=== PATIENT | male | born 1990 | race Caucasian/White ===

== ENCOUNTER 2017-05-21 19:01 | Emergency (ER) | payer MEDICAID ==
--- NOTE | 2017-05-21 19:57 | UC ---
Respiratory Complaint HPI - HPI Summary HPI Summary: 4 days of chest tightness and nasal and eye drainage no fevers no illness exposure - History of Current Complaint Chief Complaint: UCRespiratory Stated Complaint: FLU-LIKE SYMPTOMS Time Seen by Provider: 05/21/17 19:50 Hx Obtained From: Patient Onset/Duration: Gradual Onset, Lasting Days - 4, Still Present Timing: Constant Severity Initially: Mild Severity Currently: Mild Character: Cough: Nonproductive Aggravating Factors: Deep Breaths Alleviating Factors: Nothing Associated Signs And Symptoms: Positive: Pleuritic Chest Pain, URI, Nasal Congestion - Allergies/Home Medications Allergies/Adverse Reactions: Allergies Allergy/AdvReac Type Severity Reaction Status Date / Time No Known Allergies Allergy Verified 05/25/16 17:00 PMH/Surg Hx/FS Hx/Imm Hx Previously Healthy: Yes Respiratory History: Asthma - as achild - Surgical History Surgical History: None - Family History Known Family History: Negative: Hypertension - father, Diabetes - Social History Occupation: Unemployed Lives: With Family Alcohol Use: Weekly Substance Use Type: Marijuana Smoking Status (MU): Never Smoked Tobacco - Immunization History Most Recent Tetanus Shot: 05/23/16 Review of Systems Constitutional: Fatigue Skin: Negative Eyes: Negative ENT: Nasal Discharge Respiratory: Cough Cardiovascular: Negative Gastrointestinal: Negative Genitourinary: Negative Motor: Negative Neurovascular: Negative Musculoskeletal: Negative Neurological: Negative Psychological: Negative All Other Systems Reviewed And Are Negative: Yes Physical Exam Triage Information Reviewed: Yes Appearance: Well-Appearing, No Pain Distress, Well-Nourished Vital Signs: Initial Vital Signs Temp 99.1 F 05/21/17 19:05 Pulse 59 05/21/17 19:05 Resp 18 05/21/17 19:05 Pulse Ox 97 05/21/17 19:05 Vital Signs Reviewed: Yes Eye Exam: Normal Eyes: Positive: Conjunctiva Clear ENT Exam: Normal ENT: Positive: Normal ENT inspection, Hearing grossly normal, Pharynx normal, Nasal congestion, Nasal drainage, TMs normal - left (no right ear canal congenital). Negative: Tonsillar swelling, Tonsillar exudate, Trismus, Muffled/ hoarse voice Dental Exam: Normal Neck exam: Normal Neck: Positive: Supple, Nontender, No Lymphadenopathy Respiratory Exam: Normal Respiratory: Positive: Chest non-tender, Lungs clear, No respiratory distress, No accessory muscle use Cardiovascular Exam: Normal Cardiovascular: Positive: RRR, No Murmur, Pulses Normal, Brisk Capillary Refill Musculoskeletal Exam: Normal Musculoskeletal: Positive: Strength Intact, ROM Intact, No Edema Neurological Exam: Normal Neurological: Positive: Alert, Muscle Tone Normal Psychological Exam: Normal Skin Exam: Normal UC Diagnostic Evaluation - Laboratory O2 Sat by Pulse Oximetry: 97 Respiratory Course/Dx - Course Course Of Treatment: Zyrtec, albuterol, increase fluids, follow with pcp prn - Differential Dx/Diagnosis Differential Diagnosis/HQI/PQRI: Asthma, Lower Resp Infection, Sinusitis Provider Diagnoses: URI, Bronchospasm Discharge - Discharge Plan Condition: Stable Disposition: HOME Prescriptions: Albuterol HFA INHALER* [Ventolin HFA Inhaler*] 2 puff INH Q4H PRN #1 mdi PRN Reason: cough and chest tightness Cetirizine HCl [Zyrtec Allergy 10 MG TAB] 10 mg PO DAILY #30 tab Patient Education Materials: Allergic Rhinitis (ED), Bronchospasm (ED) Referrals: [facility] [place] [facility] [Outside] - If Needed
== END 2017-05-21 20:10 | disposition home or self-care (01) ==
LOC: UCEAST 19:01
DX: J06.9 Acute upper respiratory infection, unspecified (principal); J98.01 Acute bronchospasm
CPT/HCPCS: 99212; G0463

== ENCOUNTER 2018-03-01 09:46 | Emergency (ER) | payer OTHER ==
[2018-03-01 09:56] VITALS: BP 114/76
--- NOTE | 2018-03-01 11:05 | UC ---
Throat Pain/Nasal [place] HPI - HPI Summary HPI Summary: Patient is a 27-year-old otherwise healthy male presenting to the with chief complaint of sinus congestion, sore throat, cough, chest congestion, chest pain with cough, cough with yellow sputum production and sweats. Denies any known fevers or chills. History of pneumonia several years ago. No history of strep throat. Denies any sick contacts. Denies any recent travel. Takes no medications and has not been taking anything [id number] for his symptoms. Denies any ear pain. He continues to eat and drink well and remains with his normal activities. - History of Current Complaint Chief Complaint: UCGeneralIllness Stated Complaint: CONGESTION, COUGH Time Seen by Provider: 03/01/18 10:11 Hx Obtained From: Patient Onset/Duration: Sudden Onset Severity: Mild Pain Intensity: 3 Pain Scale Used: 0-10 Numeric Cough: Productive Associated Signs & Symptoms: Positive: Wheezing, Hoarseness, Sinus Discomfort, Nasal Discharge. Negative: Fever - Epiglottits Risk Factors Epiglottis Risk Factors: Negative - Allergies/Home Medications Allergies/Adverse Reactions: Allergies Allergy/AdvReac Type Severity Reaction Status Date / Time No Known Allergies Allergy Verified 03/01/18 09:57 PMH/Surg Hx/FS Hx/Imm Hx Previously Healthy: Yes - Surgical History Surgical History: None Surgery Procedure, Year, and Place: Denies - Family History Known Family History: Negative: Hypertension - father, Diabetes - Social History Occupation: Employed Full-time Lives: With Family Alcohol Use: Weekly Substance Use Type: Marijuana Smoking Status (MU): Never Smoked Tobacco - Immunization History Most Recent Tetanus Shot: 05/23/16 Review of Systems Constitutional: Negative Skin: Negative Eyes: Negative ENT: Sore Throat, Nasal Discharge, Sinus Congestion, Sinus Pain/Tenderness Respiratory: Shortness Of Breath, Cough Gastrointestinal: Negative Neurovascular: Negative Musculoskeletal: Negative Neurological: Negative Is Patient Immunocompromised?: No All Other Systems Reviewed And Are Negative: Yes Physical Exam Triage Information Reviewed: Yes Appearance: Ill-Appearing Vital Signs: Initial Vital Signs Temp 98.7 F 03/01/18 09:52 Pulse 61 03/01/18 09:52 Resp 18 03/01/18 09:52 BP 114/76 03/01/18 09:52 Pulse Ox 100 03/01/18 09:52 Vital Signs Reviewed: Yes Eye Exam: Normal ENT: Positive: Pharyngeal erythema, Nasal congestion, Nasal drainage, Sinus tenderness, Uvula midline. Negative: TM red, Tonsillar swelling, Tonsillar exudate Dental Exam: Normal Neck exam: Normal Neck: Positive: Supple, No Lymphadenopathy Respiratory Exam: Normal Respiratory: Positive: Wheezing. Negative: Rhonchi, Stridor, Expiration, Inspiration Cardiovascular Exam: Normal Cardiovascular: Positive: RRR Musculoskeletal Exam: Normal Musculoskeletal: Positive: Strength Intact Neurological: Positive: Alert Psychological: Positive: Normal Response To Family Skin Exam: Normal Throat Pain/Nasal Course/Dx - Course Course Of Treatment: During the course of treatment the patient is evaluated for cough and congestion. He appears diaphoretic on exam. Lungs are wheezing, but no rhonchorous are appreciated. Appreciated murmur, patient was unaware. Endorses some shortness of breath, patient has a history of asthma and states his symptoms worsen when he obtains a upper respiratory infection. Denies any fevers. Endorses body aches. Endorses sore throat. I have offered a strep culture, but have discussed with the patient this will not change the course of treatment as we'll place him on a short course of an antibiotic due to sinus pressure and pain, lymphadenopathy bilaterally to cervical anterior lymph nodes. He declines a strep throat at this time and will return for any worsening symptoms. I've given him azithromycin, albuterol inhaler and Zyrtec. He is okay at this time for discharge. - Differential Dx/Diagnosis Differential Diagnosis/HQI/PQRI: URI, Other Provider Diagnoses: Acute Bronchitis Discharge - Sign-Out/Discharge Documenting (check all that apply): Discharge/Admit/Transfer - Discharge Plan Condition: Stable Disposition: HOME Prescriptions: Albuterol HFA INHALER* [Ventolin HFA Inhaler*] 1 puff INH Q4H PRN #1 mdi PRN Reason: Shortness Of Breath Azithromyxin KENNETH (NF) [Z-Kenneth (Zithromax) 250 mg tabs #6] 2 tab PO .TODAY, THEN 1 DAILY #6 tab Cetirizine* [ZyrTEC 10 MG TAB*] 10 mg PO DAILY #30 tab Patient Education Materials: Acute Bronchitis (ED), Shortness of Breath (ED) Referrals: No Primary Care Phys,NOPCP [Primary Care Provider] - Additional Instructions: Zyrtex once daily in the morning Albuterol inhaler as needed Azithromycin as prescribed - Billing Disposition and Condition Condition: STABLE Disposition: HOME
== END 2018-03-01 10:36 | disposition home or self-care (01) ==
LOC: UCEAST 09:46
DX: J20.9 Acute bronchitis, unspecified (principal)
CPT/HCPCS: 99212; G0463

== ENCOUNTER 2018-10-15 19:02 | Emergency (ER) | payer OTHER ==
[2018-10-15 19:11] VITALS: BP 125/77
--- NOTE | 2018-10-15 19:15 | UC ---
Throat Pain/Nasal [place] HPI - HPI Summary HPI Summary: 28 yo male presents with increased tiredness, sinus pain/pressure/congestion, and post nasal drip for 2 days. Today he has felt nauseous and vomited 3 times. Decreased appetite. Has been drinking lots of water. Has not taken anything OTC for his symptoms. Denies fever, chills, sore throat, cough, SOB, chest pain, abdominal pain, diarrhea. - History of Current Complaint Chief Complaint: UCRespiratory Stated Complaint: HEADACHE, AND SINUS CONGESTION Time Seen by Provider: 10/15/18 19:15 Hx Obtained From: Patient Onset/Duration: Gradual Onset Severity: Mild Pain Intensity: 3 Pain Scale Used: 0-10 Numeric - Allergies/Home Medications Allergies/Adverse Reactions: Allergies Allergy/AdvReac Type Severity Reaction Status Date / Time No Known Allergies Allergy Verified 10/15/18 19:11 Home Medications: Home Medications Ibuprofen TAB* [Motrin TAB* 400 MG] 1 tab PO ONCE 10/15/18 [History Confirmed ] PMH/Surg Hx/FS Hx/Imm Hx - Additional Past Medical History Additional PMH: None - Surgical History Surgical History: None Surgery Procedure, Year, and Place: Denies - Family History Known Family History: Positive: Hypertension - father Negative: Diabetes - Social History Occupation: Employed Full-time Lives: With Family Alcohol Use: Occasionally Substance Use Type: None Smoking Status (MU): Never Smoked Tobacco - Immunization History Most Recent Tetanus Shot: 05/23/16 Review of Systems All Other Systems Reviewed And Are Negative: Yes Constitutional: Positive: Fatigue Skin: Positive: Negative Eyes: Positive: Negative ENT: Positive: Nasal Discharge, Sinus Congestion, Sinus Pain/Tenderness Respiratory: Positive: Negative Cardiovascular: Positive: Negative Gastrointestinal: Positive: Vomiting, Nausea Genitourinary: Positive: Negative Neurovascular: Positive: Negative Neurological: Positive: Negative Psychological: Positive: Negative Physical Exam - Summary Physical Exam Summary: GENERAL: NAD. WDWN. No pain distress. SKIN: No rashes, sores, lesions, or open wounds. HEENT: Head: AT/NC Eyes: EOM intact. Conjunctiva clear without inflammation or discharge. Ears: Hearing grossly normal. TMs intact, no bulging, erythema, or edema. Nose: Nasal mucosa mildly swollen and erythematous. No discharge. TTP maxillary sinus. Positive post nasal drip Throat: Posterior oropharynx without exudates, erythema, or tonsillar enlargement. Uvula midline. NECK: Supple. Nontender. No lymphadenopathy. CHEST: CTAB. No r/r/w. No accessory muscle use. Breathing comfortably and in no distress. CV: RRR. Without m/r/g. Pulses intact. Cap refill <2seconds ABDOMEN: Soft. NTTP. No distention or guarding. Bowel sounds present NEURO: Alert. PSYCH: Age appropriate behavior. Triage Information Reviewed: Yes Vital Signs: Initial Vital Signs Temp 98.9 F 10/15/18 19:08 Pulse 69 10/15/18 19:08 Resp 18 10/15/18 19:08 BP 125/77 10/15/18 19:08 Pulse Ox 100 10/15/18 19:08 Vital Signs Reviewed: Yes Throat Pain/Nasal Course/Dx - Course Course Of Treatment: Suspect viral illness. Potentially the post nasal drip causing his nausea/vomiting or an underlying gastroenteritis. He is afebrile and is drinking well. Will rx for zofran and flonase and have him advanced his diet as tolerated. If he develops new or worsening symptoms to be rechecked. - Differential Dx/Diagnosis Provider Diagnosis: Rhinosinusitis, Vomiting, Nausea Discharge - Sign-Out/Discharge Documenting (check all that apply): Patient Departure All imaging exams completed and their final reports reviewed: No Studies - Discharge Plan Condition: Stable Disposition: HOME Prescriptions: Fluticasone NASAL SPRAY 50MCG* [Flonase NASAL SPRAY 50MCG*] 2 spray BOTH NARES DAILY #1 btl Ondansetron ODT TAB* [Zofran 4 MG Odt TAB*] 4 mg PO Q8H PRN #9 tab.odt PRN Reason: Nausea Patient Education Materials: Gastroenteritis (ED) Referrals: No Primary Care Phys,NOPCP [Primary Care Provider] - Additional Instructions: If you develop a fever, shortness of breath, chest pain, new or worsening symptoms - please call your PCP or go to the ED. - Billing Disposition and Condition Condition: STABLE Disposition: Home - Attestation Statements Provider Attestation: I was available for consult. This patient was seen by the [facility]. The patient was not presented to , seen by or examined by md -Chilo Martinez MD
[2018-10-15] MEDS ORDERED: Ondansetron ODT TAB* 4 MG SL ONE (19:30)
== END 2018-10-15 20:05 | disposition home or self-care (01) ==
LOC: UCEAST 19:02
DX: J32.9 Chronic sinusitis, unspecified (principal); R11.2 Nausea with vomiting, unspecified
CPT/HCPCS: 99212; A9270-GY; G0463

== ENCOUNTER 2018-11-29 14:31 | Emergency (ER) | payer OTHER ==
[2018-11-29 14:59] VITALS: BP 97/56
[2018-11-29 15:26] LABS: Influenza A Molecular POSITIVE (Negative)
--- NOTE | 2018-11-29 16:00 | UC ---
FLU HPI - HPI Summary HPI Summary: 2 DAYS OF COUGH, SINUS PRESSURE, FATIGUE, BODY ACHES, SUBJECTIVE FEVER/CHILLS AND MURO. NO FLU SHOT THIS SEASON. - History of Current Complaint Chief Complaint: UCGeneralIllness Stated Complaint: FLU LIKE SYMPTOMS Time Seen by Provider: 11/29/18 15:42 Hx Obtained From: Patient Onset/Duration: Gradual Onset, Lasting Days, Still Present Severity Currently: Moderate Severity Initially: Moderate Pain Intensity: 8 Pain Scale Used: 0-10 Numeric Associated Signs & Symptoms: Positive: Fever, Myalgia, Cough, Headache - Allergy/Home Medications Allergies/Adverse Reactions: Allergies Allergy/AdvReac Type Severity Reaction Status Date / Time No Known Allergies Allergy Verified 11/29/18 14:59 PMH/Surg Hx/FS Hx/Imm Hx Respiratory History: Asthma - Surgical History Surgical History: None Surgery Procedure, Year, and Place: Denies - Family History Known Family History: Positive: Hypertension - father Negative: Diabetes - Social History Alcohol Use: Occasionally Substance Use Type: None Smoking Status (MU): Never Smoked Tobacco - Immunization History Most Recent Tetanus Shot: 05/23/16 Review of Systems All Other Systems Reviewed And Are Negative: Yes Constitutional: Positive: Fever, Chills, Fatigue ENT: Positive: Sinus Congestion Respiratory: Positive: Cough Cardiovascular: Positive: Negative Gastrointestinal: Positive: Negative Musculoskeletal: Positive: Arthralgia, Myalgia Neurological: Positive: Headache Physical Exam Triage Information Reviewed: Yes Appearance: No Pain Distress, Well-Nourished, Ill-Appearing - MOD Vital Signs: Initial Vital Signs Temp 99.2 F 11/29/18 14:57 Pulse 74 11/29/18 14:57 Resp 18 11/29/18 14:57 BP 97/56 11/29/18 14:57 Pulse Ox 100 11/29/18 14:57 Laboratory Tests 11/29/18 15:22 Influenza A (Rapid) Positive A Vital Signs Reviewed: Yes Eyes: Positive: Conjunctiva Clear ENT: Positive: Hearing grossly normal, Pharynx normal, TMs normal - LEFT TM NORMAL. RIGHT EAC CLOSED - CONGENITAL DEFECT Neck: Positive: Supple, Nontender, No Lymphadenopathy Respiratory Exam: Normal Cardiovascular Exam: Normal Abdomen Description: Positive: Nontender, Soft Musculoskeletal: Positive: No Edema Neurological: Positive: Alert Psychological: Positive: Age Appropriate Behavior Skin: Negative: Rashes Flu Course/Dx - Course Course Of Treatment: TAMIFLU FOR 5 DAYS. ALBUTEROL REFILLED PER REQUEST. OFF WORK REMAINDER OF WEEK. - Differential Dx/Diagnosis Provider Diagnosis: Influenza A Discharge - Sign-Out/Discharge Documenting (check all that apply): Patient Departure All imaging exams completed and their final reports reviewed: No Studies - Discharge Plan Condition: Stable Disposition: HOME Prescriptions: Albuterol HFA INHALER* [Ventolin HFA Inhaler*] 2 puff INH Q4H PRN #1 mdi PRN Reason: Shortness Of Breath Oseltamivir CAP* [Tamiflu CAP*] 75 mg PO BID #10 cap Patient Education Materials: Influenza (ED) Forms: *Work Release Referrals: [facility] [Outside] - If Needed Additional Instructions: SWAB POSITIVE FOR INFLUENZA A. TAMIFLU TWICE DAILY FOR 5 DAYS. OTC MEDS NEEDED FOR FEVER, BODY ACHES. STAY WELL HYDRATED AND RESTED. SEEK FOLLOW-UP IF YOU ARE NOT IMPROVING EXPECTED. IBUPROFEN MAX DOSE: 600MG (3 TABS) EVERY 6 HRS OR 800MG (4 TABS) EVERY 8 HRS OR NAPROXEN MAX DOSE: 440MG (2 TABS) EVERY 12 HRS TYLENOL MAX DOSE: 1000MG (2 EXTRA STRENGTH TABS) EVERY 8 HRS OR 650MG (2 REGULAR TABS) EVERY 6 HRS CALL THE NUMBER BELOW FOR ASSISTANCE IN ESTABLISHING WITH A PCP An additional resource available to assist in finding the appropriate physician for your health care needs is the [facility] ([facility]). You may contact them by calling [phone]. - Billing Disposition and Condition Condition: STABLE Disposition: Home
== END 2018-11-29 16:04 | disposition home or self-care (01) ==
LOC: UCEAST 14:31
DX: J10.1 Influenza due to other identified influenza virus with other respiratory manifestations (principal); J45.909 Unspecified asthma, uncomplicated
CPT/HCPCS: 99202; G0463